=== PATIENT | male | born 1965 | race Caucasian/White ===

== ENCOUNTER 2018-09-26 11:04 | Emergency (ER) | payer OTHER ==
[2018-09-26 11:33] VITALS: BP 195/110
--- NOTE | 2018-09-26 11:35 | UC ---
Respiratory Complaint HPI - HPI Summary HPI Summary: got a haircut 3 weeks ago and developed a itchy rash behind both ears. tried vinegar without relief. Last pm he tried Tea Tree oil shampoo and developed chestpain, he believes from shampoo. today he has a cough and CP persists. he has a known history of HTN for years which he has never treated. he did take 50mg benadryl last pm and fell asleep - History of Current Complaint Chief Complaint: UCGeneralIllness Stated Complaint: URI Time Seen by Provider: 09/26/18 11:27 Hx Obtained From: Patient Onset/Duration: Sudden Onset Timing: Intermittent Episodes Severity Initially: Mild Severity Currently: Mild Pain Intensity: 2 Character: Cough: Nonproductive Aggravating Factors: Nothing Alleviating Factors: Nothing Associated Signs And Symptoms: Positive: Nasal Congestion. Negative: Dyspnea, Fever, Wheezing, Dizziness, Calf Pain, Calf Swelling - Risk Factors Cardiac Risk Factors: Hypertension - Allergies/Home Medications Allergies/Adverse Reactions: Allergies Allergy/AdvReac Type Severity Reaction Status Date / Time Penicillins Allergy Severe Rash Verified 09/26/18 11:15 Home Medications: Home Medications diPHENhydraMINE PO* [Benadryl PO 25 MG TAB*] 2 tab PO BEDTIME PRN 09/26/18 [ History Confirmed 09/26/18] guaiFENesin [Mucinex] 1 tab PO BID PRN 09/26/18 [History Confirmed 09/26/18] PMH/Surg Hx/FS Hx/Imm Hx Previously Healthy: Yes Cardiovascular History: Hypertension - Surgical History Surgical History: None - Family History Known Family History: Positive: Hypertension - Social History Occupation: Unemployed Lives: Alone Alcohol Use: Rare Alcohol Amount: wine sometimes Substance Use Type: Marijuana Substance Use Comment - Amount & Last Used: occassionally Smoking Status (MU): Former Smoker Type: Cigars Review of Systems All Other Systems Reviewed And Are Negative: Yes Constitutional: Positive: Negative. Negative: Fever, Chills Skin: Positive: Rash - on scalp behind ears ENT: Positive: Sinus Congestion Respiratory: Positive: Cough Cardiovascular: Positive: Chest Pain Gastrointestinal: Positive: Negative. Negative: Vomiting, Nausea Musculoskeletal: Positive: Negative Neurological: Positive: Negative. Negative: Headache Psychological: Positive: Negative Is Patient Immunocompromised?: No Physical Exam Triage Information Reviewed: Yes Appearance: Well-Appearing, No Pain Distress, Obese Vital Signs: Initial Vital Signs Temp 97.2 F 09/26/18 11:17 Pulse 101 09/26/18 11:17 Resp 22 09/26/18 11:17 BP 185/123 09/26/18 11:17 Pulse Ox 99 09/26/18 11:17 Vital Signs Reviewed: Yes ENT: Positive: Nasal congestion Respiratory Exam: Normal Respiratory: Positive: Lungs clear, No respiratory distress Cardiovascular Exam: Normal Cardiovascular: Positive: RRR, Tachycardia Neurological Exam: Normal Neurological: Positive: Alert Psychological Exam: Normal Skin: Positive: Rashes - few scattered, small erythemic, slghtly raised pruritic lesions bilateral scalp occiput area, lower temporal area, no vesicles , no parasites detected. Diagnostics - EKG Summary of EKG Findings: NSR - read by Dr. Pelletier Respiratory Course/Dx - Course Course Of Treatment: Discussed concern for cardiac risks given CP and HTN and need for further work- up in ER to rule out NM. Patient firmly refuses to go to ER by ambulance. He agrees to go only by car, but agrees he will go [place] [facility] [place]. Dr. Pelletier aware of patient, EKG, symps and decision to refuse EMS - Differential Dx/Diagnosis Differential Diagnosis/HQI/PQRI: Bronchitis, Lower Resp Infection, Pulmonary Embolism, Other - NM, HTN Provider Diagnosis: Chest pain, Hypertension Discharge - Sign-Out/Discharge Documenting (check all that apply): Patient Departure All imaging exams completed and their final reports reviewed: No Studies - Discharge Plan Condition: Stable Disposition: HOME Referrals: No Primary Care Phys,NOPCP [Primary Care Provider] - Additional Instructions: please go directly from here to [facility] Emergency room now for further evaluation of chest pain - Billing Disposition and Condition Condition: STABLE Disposition: Home
== END 2018-09-26 12:00 | disposition home or self-care (01) ==
LOC: UCEAST 11:04
DX: R07.9 Chest pain, unspecified (principal); I10 Essential (primary) hypertension; Z88.0 Allergy status to penicillin; Z87.891 Personal history of nicotine dependence
CPT/HCPCS: 99202; G0463

== ENCOUNTER 2018-09-26 12:31 | Emergency (ER) | payer OTHER ==
[2018-09-26 13:44] LABS: ABS Basophils 0.1 10^3/ul (0-0.2); ABS Eosinophils 0.2 10^3/ul (0-0.6); ABS Lymphocytes 1.3 10^3/ul (1.0-4.8); ABS Monocytes 0.8 10^3/ul (0-0.8); ABS Neutrophils 7.5 10^3/ul (1.5-7.7); Eosinophil % 1.6 %; Hematocrit 45 % (42-52); Hemoglobin 15.5 g/dL (14.0-18.0); Lymphocyte % 12.9 %; Mean Corpuscular HGB Conc 34 g/dL (31-36); Mean Corpuscular Hemoglobin 29 pg (27-31); Mean Corpuscular Volume 86 fL (80-94); Mean Platelet Volume 8.6 fL (7.4-10.4); Platelet Count 217 10^3/uL (150-450); Red Blood Count 5.28 10^6 /uL (4.18-5.48); Red Cell Distribution Width 15 % (10-15); White Blood Count 9.9 10^3/uL (3.5-10.8)
--- NOTE | 2018-09-26 13:49 | ED ---
Respiratory - HPI Summary HPI Summary: The patient is a 52 y/o M presenting to [facility] from [facility] with a chief complaint of upper respiratory symptoms and uncontrolled HTN today 09/26/18. He reports that he has been experiencing rhinorrhea with post-nasal drip that causes a sore throat and dysphagia starting 09/23, with worsening last night. There is CP secondary to cough, which is now nonproductive, but it had been productive with clear phlegm. The chest discomfort is described as a burning sensation when present, and it is aggravated by palpation. He has been using Mucinex to treat his symptoms [employer]. He additionally has an pruritic sensation on the scalp, specifically the right temporal region. He notes that he got a haircut approximately 3 weeks ago, and three days later, he began to have the itching sensation. He has applied vinegar, and on 09/23, he also applied tree tea oil, mint, and lavender, which has since relieved the itching. Currently, his overall pain is rated 2/10 in severity. Hx of HTN (uncontrolled), bronchitis. Dx with HTN one year ago but has not been on medications. No hx of asthma. FHx of HTN, cancer. No fhx of cardiac disease. Current some day cigar smoker, occasional EtOH, marijuana use a few times a week. He notes that he is currently stressed out because of his daughter's current medical conditions, which he believes may be the cause of increased BP. Vital signs while in room (at 1458): HR 99 bpm, BP 180/106, O2 sat 95%. Vital signs while in room (at 1506): HR 95 bpm, BP of 185/122. Home Medications Medication Instructions Recorded Confirmed Type diPHENhydraMINE PO* [Benadryl PO 2 tab PO BEDTIME PRN 09/26/18 09/26/18 History 25 MG TAB*] guaiFENesin [Mucinex] 1 tab PO BID PRN 09/26/18 09/26/18 History - History of Current Complaint Chief Complaint: EDUpperRespComplaint Stated Complaint: HIGH BLOOD PRESSURE PER PT COMMING FROM Time Seen by Provider: 09/26/18 13:33 Hx Obtained From: Patient Onset/Duration: Gradual Onset, Lasting Days - since 09/23, Still Present Pain Intensity: 2 Character: Cough (Nonproductive) - currently nonproductive but was productive with clear phlegm - Allergy/Home Medications Allergies/Adverse Reactions: Allergies Allergy/AdvReac Type Severity Reaction Status Date / Time Penicillins Allergy Severe Rash Verified 09/26/18 12:40 PMH/Surg Hx/FS Hx/Imm Hx Endocrine/Hematology History: Denies: Hx Diabetes, Hx Thyroid Disease Cardiovascular History: Reports: Hx Hypertension - no medications Respiratory History: Denies: Hx Asthma, Hx Chronic Obstructive Pulmonary Disease (COPD) GI History: Denies: Hx Ulcer Infectious Disease History: No Infectious Disease History: Denies: Hx Clostridium Difficile, Hx Hepatitis, Hx Human Immunodeficiency Virus (HIV), Hx of Known/Suspected MRSA, Hx Shingles, Hx Tuberculosis, Hx Known/ Suspected VRE, Hx Known/Suspected VRSA, History Other Infectious Disease, Traveled Outside the [place] in Last 30 Days - Family History Known Family History: Positive: Hypertension, Other - cancer in father Negative: Cardiac Disease - Social History Alcohol Use: Occasionally Alcohol Amount: wine sometimes, tastings 1-2 times a month Hx Substance Use: Yes Substance Use Type: Reports: Marijuana Substance Use Comment - Amount & Last Used: a few times a week Hx Tobacco Use: Yes Smoking Status (MU): Current Some Day Smoker Type: Cigars Review of Systems Positive: Sore Throat, Nasal Discharge - post-nasal, Other - dysphagia Positive: Chest Pain - secondary to cough Positive: Cough - nonproductive currently, previously had productive cough with clear phlegm Positive: Other - pruritic scalp on right temporal (less severe over last two days) All Other Systems Reviewed And Are Negative: Yes Physical Exam - Summary Physical Exam Summary: Appearance: Ill-appearing, moderate pain distress, well-nourished Skin: Diffuse little excoriated papules in the belt line bilaterally, Warm, color reflects adequate perfusion, dry Head: Normal Head/Face inspection, atraumatic, Examining scalp and hair: there is no redness to the scalp, no induration, no indication of lice or nits, no white areas, no evidence of ring worm, same throughout all of scalp. Eyes: Conjunctiva clear ENT: Nasal congestion when speaking and sniffs in Neck: Supple, no nodes, no JVD Respiratory: Lungs clear, normal breath sounds, no respiratory distress Cardio: RRR, No murmur, pulses normal, brisk capillary refill Abdomen: Soft, nontender, Bilateral bruises in RLQ and LLQ Bowel sounds: Present Musculoskeletal: Strength Intact/ROM intact, no calf tenderness, no edema, pulses intact. Lower extremity exam is limited as patient refuses to remove pants. Psychological: Normal Neuro: Alert, muscle tone normal, no focal deficit Triage Information Reviewed: Yes Vital Signs On Initial Exam: Initial Vitals Temp Pulse Resp BP Pulse Ox 97.7 F 103 18 203/117 97 09/26/18 12:33 09/26/18 12:33 09/26/18 12:33 09/26/18 12:33 09/26/18 12:33 Vital Signs Reviewed: Yes Diagnostics - Vital Signs Vital Signs Temp Pulse Resp BP Pulse Ox 09/26/18 12:33 97.7 F 103 18 203/117 97 - Laboratory Lab Results: Lab Results 09/26/18 Range/Units 13:25 WBC 9.9 (3.5-10.8) 10^3/uL RBC 5.28 (4.18-5.48) 10^6 /uL Hgb 15.5 (14.0-18.0) g/dL Hct 45 (42-52) % MCV 86 (80-94) fL MCH 29 (27-31) pg MCHC 34 (31-36) g/dL RDW 15 (10-15) % Plt Count 217 (150-450) 10^3/uL MPV 8.6 (7.4-10.4) fL Neut % (Auto) 76.1 % Lymph % (Auto) 12.9 % Mccormick % (Auto) 8.4 % Eos % (Auto) 1.6 % Baso % (Auto) 1.0 % Absolute Neuts (auto) 7.5 (1.5-7.7) 10^3/ul Absolute Lymphs (auto) 1.3 (1.0-4.8) 10^3/ul Absolute Monos (auto) 0.8 (0-0.8) 10^3/ul Absolute Eos (auto) 0.2 (0-0.6) 10^3/ul Absolute Basos (auto) 0.1 (0-0.2) 10^3/ul Absolute Nucleated RBC 0.0 10^3/ul Nucleated RBC % 0.0 Result Diagrams: 09/26/18 13:25 09/26/18 13:25 Lab Statement: Any lab studies that have been ordered have been reviewed, and results considered in the medical decision making process. - Radiology CXR Radiology Interpretation Completed By: Radiologist Summary of Radiographic Findings: Impression: Elevation the right hemidiaphragm which can be seen with diaphragmatic paralysis. There is associated linear atelectasis of the right lung base. ED physician has reviewed this radiology report. - EKG 1351 Cardiac Rate: NL - 95 BPM EKG Rhythm: Sinus Rhythm EKG Comparison: No Significant Change - No change from 05/08/2011. No change from earlier today 09/16/2018 at 1143. Summary of EKG Findings: Normal AV CT. Prolonged IV CT. Nonspecific (112). Normal QTc. No STEMI. Re-Evaluation - Re-Evaluation First Eval Re-Evaluation Time: 16:00 Comment: I discussed findings and discharge plan with the patient. He agrees with this plan. Disposition - Course Course Of Treatment: Pt medications reviewed this visit. Nurses notes reviewed. Allergies noted. High blood pressure noted. The patient is a 52 y/o M presenting to [facility] from [facility] with a chief complaint of upper respiratory symptoms and uncontrolled HTN today 09/26/18 with CP secondary to current nonproductive cough. When present, the CP is described as a burning sensation. Additionally concerned about pruritic scalp. Hx of HTN (uncontrolled), bronchitis. Dx with HTN one year ago but has not been on medications. No hx of asthma. FHx of HTN, cancer. No fhx of cardiac disease. Current some day cigar smoker, occasional EtOH, marijuana use a few times a week. Upon physical exam, examining scalp and hair: there is no redness to the scalp, no induration, no indication of lice or nits, no white areas, no evidence of ring worm, same throughout all of scalp; nasal congestion when speaking and sniffs in, bilateral bruises in RLQ and LLQ, Diffuse little excoriated papules in the belt line bilaterally, no edema, pulses intact, no calf tenderness. Blood work reveals glucose of 125 and CRP of 16.74. EKG reveals NSR at 95 bpm, mormal AV CT , prolonged IV CT, nonspecific (112), normal QTc. CXR Impression: Elevation the right hemidiaphragm which can be seen with diaphragmatic paralysis. There is associated linear atelectasis of the right lung base. In the ED course, the patient was administered Toprol and Zithromax. He is able to be discharged home with follow up with [facility] and [facility] Physician Referral in 2 days. He is prescribed Zithromax. He is agreeable with the plan. Patient is diagnosed with HTN, URI, and atelectasis. - Diagnoses Provider Diagnoses: Tobacco abuse disorder, Poorly controlled blood pressure, HTN (hypertension), URI (upper respiratory infection), Atelectasis Discharge - Sign-Out/Discharge Documenting (check all that apply): Patient Departure - Patient will be discharged home. Patient Received Moderate/Deep Sedation with Procedure: No - Discharge Plan Condition: Stable Disposition: HOME Prescriptions: Azithromycin TAB* [Zithromax TAB (Z-MAXIMUS) 250 mg #6 tabs] 250 mg PO DAILY #4 tab Patient Education Materials: Upper Respiratory Infection (ED), Hypertension (ED ), Atelectasis (ED) Referrals: [facility] [Outside] - 2 Days [facility] PHYSICIAN REFERRAL [Outside] - 2 Days Additional Instructions: Dr. Royal gave your first dose of azithromycin 500mg for the upper respiratory infection and the atelectasis on the chest xray. You need to fruit or nut picker the rest of the prescription tomorrow and take as directed. She also gave one dose of the long acting metoprolol XL 50mg for your hypertension and tachycardia (fast heart rate) in the ER. Your highest blood pressure in the ER was 209/113. Your pulses ranged from 99-108. Normal heart rate is 60-100. We have not prescribed the metoprolol XL because we will let the physician determine what medication they feel will be best for you. We have given you a referral to the [facility] which should be able to see you tomorrow, but at the very latest on Thursday09/28/18. We have also given you a referral and phone number of the physician referral center which can also help you find a physician. We gave you a copy of your chest xray. Your labs will print out with these papers. Return to the emergency department for any new or worsening symptoms. - Billing Disposition and Condition Condition: STABLE Disposition: Home - Attestation Statements Document Initiated by Scribe: Yes Documenting Scribe: Rosy Reynolds Provider For Whom Earlinee is Documenting (Include Credential): MD Gisella Hansenibe Attestation: Rosy Kothari, scribed for Dr. Mercedes Royal MD on 09/26/18 at 2204. Status of Scribe Document: Ready
[2018-09-26 14:03] LABS: Albumin 4.5 g/dL (3.2-5.2); Albumin/Globulin Ratio 1.3 (1-3); BUN/Creatinine Ratio 17.9 (8-20); C Reactive Protein 16.74 mg/L (<8.01); Calcium 9.3 mg/dL (8.6-10.3); EGFR African American 100.7 (>60); EGFR Non-African American 83.3 (>60); Globulin 3.4 g/dL (2-4); Potassium 4.2 mmol/L (3.5-5.0); Total Bilirubin 0.7 mg/dL (0.2-1.0); Total Protein 7.9 g/dL (6.4-8.9)
[2018-09-26] MEDS ORDERED: Azithromycin TAB* 250 MG PO ONE (15:53)
[2018-09-26] MEDS ORDERED: Metoprolol Succinate XL TAB* 50 MG PO ONE (15:55)
[2018-09-26 16:21] VITALS: BP 167/105
== END 2018-09-26 16:22 | disposition home or self-care (01) ==
LOC: ED 12:31
DX: I10 Essential (primary) hypertension (principal); J06.9 Acute upper respiratory infection, unspecified; J98.11 Atelectasis; F17.210 Nicotine dependence, cigarettes, uncomplicated
CPT/HCPCS: 36415; 71046; 80053; 83605; 83880; 84484; 85025; 86140; 93005; 99282; A9270-GY